=== PATIENT | female | born 2005 | race Caucasian/White ===

== ENCOUNTER 2025-01-03 21:59 | Emergency (ER) | payer OTHER ==
[2025-01-03 22:35] VITALS: BP 117/71; PULSE 85; RESP 17; TEMP 98.8; BMI 31.1
[2025-01-03] MEDS ORDERED: SULFAMETHOXAZOLE/TRIMETHOPRIM 800MG/160MG D.S. TABLET ONE (22:36)
[2025-01-03] MEDS ORDERED: IBUPROFEN 400 MG TABLET (FP) PO ONE (22:40)
[2025-01-03] MEDS: IBUPROFEN 400 MG TABLET (FP) PO ONE (23:10)
[2025-01-03] MEDS: SULFAMETHOXAZOLE/TRIMETHOPRIM 800MG/160MG D.S. TABLET PO ONE (23:11)
== END 2025-01-04 00:22 | disposition home or self-care (01) ==
LOC: FER 21:59
PROC: 0H9BXZZ Drainage of Right Upper Arm Skin, External Approach (ICD-10-PCS; principal; 2025-01-03)
DX: L02.411 Cutaneous abscess of right axilla (principal)
CPT/HCPCS: 99283-25